=== PATIENT | male | born 1970 | race Caucasian/White ===

== ENCOUNTER 2020-09-18 18:04 | Emergency (ER) | payer OTHER ==
[~2020-09-18] VITALS: Ht 167.6 cm; Wt 100.2 kg
[2020-09-18 18:11] VITALS: BP 128/76; Ht 167.6 cm; Wt 100.2 kg
== END 2020-09-18 18:41 | disposition home or self-care (01) ==
LOC: ED 18:04
DX: S01.01XA Laceration without foreign body of scalp, initial encounter (principal); J45.909 Unspecified asthma, uncomplicated; X58.XXXA Exposure to other specified factors, initial encounter; Y93.89 Activity, other specified; Y92.89 Other specified places as the place of occurrence of the external cause; Y99.8 Other external cause status

== ENCOUNTER 2020-09-21 17:31 | Emergency (ER) | payer OTHER ==
[~2020-09-21] VITALS: Ht 167.6 cm; Wt 99.8 kg
[2020-09-21 17:47] VITALS: BP 128/72; Ht 167.6 cm; Wt 99.8 kg
== END 2020-09-21 18:30 | disposition home or self-care (01) ==
LOC: ED 17:31
DX: S01.01XD Laceration without foreign body of scalp, subsequent encounter (principal); J45.909 Unspecified asthma, uncomplicated; X58.XXXD Exposure to other specified factors, subsequent encounter
CPT/HCPCS: J2405